=== PATIENT | female | born 1960 | race Caucasian/White ===

== ENCOUNTER → 2017-11-20 10:04 | Outpatient (CLI) | payer OTHER, SELFPAY ==
--- NOTE | 2017-11-20 10:14 | XR_ITS ---
XR chest 2V HISTORY: ITS.REASON: BRONCHITIS ORDERING PHYSICIAN: Maryanne Kam PATIENT AGE: 57 years COMPARISON: None FINDINGS: The cardiomediastinal silhouette and pulmonary vascularity are within normal limits. There is hyperinflation with attenuation of the peripheral pulmonary vessels which may be seen with small airway disease such as COPD or asthma. The lungs are clear without infiltrates, suspicious nodules, or pleural effusions. No acute bony abnormalities. IMPRESSION: Hyperinflation suggesting small airway disease such as COPD or asthma or bronchitis
== END ==
PROVIDERS: PCP Family Medicine; Visit Provider Nurse Practitioner Family
DX: J40 Bronchitis, not specified as acute or chronic (principal)
CPT/HCPCS: 71046

== ENCOUNTER → 2017-12-15 11:12 | Outpatient (CLI) | payer BC, SELFPAY | PROVIDERS: PCP Family Medicine; Visit Provider Family Medicine | DX: J44.1 Chronic obstructive pulmonary disease with (acute) exacerbation (principal) | CPT/HCPCS: 94060; 94727; 94729 ==

== ENCOUNTER 2020-04-22 12:37 | Emergency (ER) | payer BC, SELFPAY ==
[2020-04-22 12:40] VITALS: BP 122/76; PULSE 83; RESP 19; TEMP 36.8; O2SAT 99; BMI 26.4
--- NOTE | 2020-04-22 13:11 | HMH.EDUTC ---
[facility] [place] Clinical Impression: Exposure to COVID-19 virus Disposition: Home, Self-Care Condition on Discharge: Good Instructions: DI for COVID-19 (Suspected or Confirmed ), Coronavirus Disease 2019, Preventing the Spread of Coronavirus Discharge Instructions Additional Instructions: *Monitor Temp, Over the counter Motrin or Tylenol as directed/as needed Tylenol every 4 hours and Motrin every 6 hours (as long as your family doctor has told you that you can take it) for fever or pain. and straight to ER if unable to lower temp less than 101.0 after medication given Follow up IMMEDIATELY for new or worsening symptoms or no Noticeable improvement over the next 48-72 hours. 911 for difficulty breathing or swallowing You were tested for today for COVID19 your test result should be back in the next 24-48 hours, you may call to the [facility] to see if your test results are back in the next 48 hours [phone] [facility] hours are 9am-9pm You was given a handout with instructions for Self Quarantine and Self isolation for while you wait on test results and what to do if they are positive If you are positive the Health Dept will be contacting you also Referrals: Alicia Alejandre [Primary Care Provider] - As needed Forms: Work/School Release Time of Disposition: 13:17 Medical Decision Making - Simeon Inquiry Pt receiving controlled substance: No Simeon was queried for this patient: No Vital Signs: 04/22/20 12:40 Temperature 98.2 F Temperature Source Oral Pulse Rate [Right Brachial] 83 Respiratory Rate 19 Blood Pressure [Right Arm] 122/76 Blood Pressure Mean [Right Arm] 91 Blood Pressure Source [Right Arm] Automatic Cuff Blood Pressure Position [Right Arm] Sitting 02 Sat by Pulse Oximetry 99 Oxygen Delivery Method Room Air Orders (Tests/Meds): ORDERS Category Date Time Status Covid-19 Nasal PCR Sendout [facility] Stat Lab 04/22/20 12:47 Ordered [facility] [place] - General Stated complaint: covid exposure Time Seen by Provider: 04/22/20 13:11 Mode of Arrival: Ambulatory Source of Information: Patient Limitations: No Limitations Description of Symptoms (Recalled from Triage Doc. by RN): PATIENT REQUESTING COVID TEST D/T EXPOSURE; DENIES SYMPTOMS HEENT Symptoms (Recalled from RN notes): No Resp Symptoms (Recalled from RN notes): No Skin Symptoms (Recalled from RN notes): No MS Symptoms (Recalled from RN notes): No Functional Status (Recalled from RN notes): WNL - History of Present Illness Provider Complaint: Patient state that she was recently around someone that in close contact with someone that has since tested positive for COVID States that she is not having any symptoms but wanted to get tested due to close contact - Related Data Home Medications Medication Instructions Recorded Confirmed Oxybutynin Chloride 5 mg PO BID 06/08/19 06/08/19 Allergies Allergy/AdvReac Type Severity Reaction Status Date / Time promethazine [From Phenergan] Allergy Verified 09/03/18 15:19 - Worker's Comp Is this a Worker's Comp case?: No [place] History - Hepatitis A Screen Drug use history?: No High risk sexual behaviors?: No History of sexually transmitted infection?: No Currently employed?: No Childcare worker?: No Do you have indoor plumbing?: Yes Do you have electricity?: Yes Attestation statement:: This patient has been screened for Hepatitis A risk factors. I have reviewed the patient's past medical history: Yes Medical History: Reports:: Chronic Obstructive Pulmonary Disease (COPD) Other Medical History: Reports: Arthritis Other Surgeries: Yes: Other Amputation: No Fractures: No Comment: cyst removed from hand - Social History Smoking Status: Current every day smoker Tobacco Type: cigarettes # Packs/Day (cigarettes): 1 #Yrs smoked (if former smoker): 40 Alcohol Intake: never Alcohol Intake Frequency:: holidays/special occasions only Substance Use Type: denies use Occupational Status: other [employer]
[2020-04-22 13:18] VITALS: BP 122/76; PULSE 83; RESP 19; TEMP 36.8; O2SAT 99
[2020-04-23 12:09] LABS: Covid-19 Nasal PCR Sendout P&C Negative
== END 2020-04-22 13:24 | disposition home or self-care (01) ==
PROVIDERS: Emergency Provider Nurse Practitioner; PCP Family Medicine
DX: Z20.828 Contact with and (suspected) exposure to other viral communicable diseases (principal); J44.9 Chronic obstructive pulmonary disease, unspecified; F17.210 Nicotine dependence, cigarettes, uncomplicated; Z79.899 Other long term (current) drug therapy
CPT/HCPCS: 99201; U0004

== ENCOUNTER 2020-08-25 13:22 | Emergency (ER) | payer BC, SELFPAY ==
[2020-08-25 13:35] VITALS: BP 113/86; PULSE 86; RESP 19; TEMP 36.8; O2SAT 100; BMI 25.4
--- NOTE | 2020-08-25 13:45 | HMH.EDUTC ---
[facility] [place] Impression: Ingrown nail of great toe of right foot Low back pain Qualifiers: Chronicity: chronic Back pain laterality: right Sciatica presence: with sciatica Sciatica laterality: sciatica of right side Qualified Code(s): M54.41 - Lumbago with sciatica, right side Disposition: Home, Self-Care Condition on Discharge: Good Instructions: Ingrown Toenail, DI for Low Back Pain Additional Instructions: Go home and rest. No heavy lifting. No twisting. Take the oral medications as directed. Don't start the oral steroids (medrol dose pack) until tomorrow, since you had the shots in here today. Follow up with your regular doctor. Follow up with Dr. Hilton (podiatry) regarding your ingrown toe nail. GO TO THE ER FOR ANY WORSENING SYMPTOMS OR CONCERN, ESPECIALLY BOWEL OR BLADDER ISSUES, SADDLE AREA NUMBNESS, FEVER, ETC Prescriptions: cephALEXin [cephALEXin 500mg capsule] 500 mg PO Q6H 10 Days #40 cap Transmission Status: Received by [id number] methylPREDNISolone [Medrol] 4 mg PO DIRECTED 6 Days #21 tab.ds.pk Transmission Status: Received by [id number] Referrals: Alicia Alejandre [Primary Care Provider] - Risa Hilton DPM [Staff Physician] - Forms: Work/School Release Time of Disposition: 14:12 Medical Decision Making - Medical Records Medical records reviewed: No: I reviewed the patient's medical records. - Simeon Inquiry Pt receiving controlled substance: No Vital Signs: 08/25/20 13:35 08/25/20 14:11 Temperature 98.2 F 98.2 F Temperature Source Oral Pulse Rate 86 Pulse Rate [Right Brachial] 86 Respiratory Rate 19 19 Blood Pressure 113/86 Blood Pressure [Right Arm] 113/86 Blood Pressure Mean [Right Arm] 95 Blood Pressure Source [Right Arm] Automatic Cuff Blood Pressure Position [Right Arm] Sitting 02 Sat by Pulse Oximetry 100 Oxygen Delivery Method Room Air Orders (Tests/Meds): ED MEDICATIONS Discontinued Medications Generic Name Dose Route Start Last Admin Trade Name Freq PRN Reason Stop Dose Admin Ketorolac Tromethamine 60 mg 08/25/20 13:53 08/25/20 14:00 Ketorolac 60mg/2ml Vial IM 08/25/20 13:54 60 mg ONCE ONE Administration Methylprednisolone Sodium Succinate 125 mg 08/25/20 13:53 08/25/20 14:00 Methylprednisolone Sod Succ 125mg Vial IM 08/25/20 13:54 125 mg ONCE ONE Administration [facility] [place] - General Stated complaint: lt side pain, rt foot pain Time Seen by Provider: 08/25/20 13:49 - History of Present Illness Provider Complaint: She states that she has been having right great toe pain for the past 1 week. She has had an ingrown nail and it felt like this before. She has also been having low back pain that radiates down her right leg. - Related Data Home Medications Medication Instructions Recorded Confirmed Oxybutynin Chloride 5 mg PO BID 06/08/19 08/25/20 Previous Rx's Medication Instructions Recorded cephALEXin [cephALEXin 500mg 500 mg PO Q6H 10 Days #40 cap 08/25/20 capsule] methylPREDNISolone [Medrol] 4 mg PO DIRECTED 6 Days #21 08/25/20 tab.ds.pk Allergies Allergy/AdvReac Type Severity Reaction Status Date / Time promethazine [From Phenergan] Allergy Verified 09/03/18 15:19 [facility] History - Hepatitis A Screen Attestation statement:: This patient has been screened for Hepatitis A risk factors. I have reviewed the patient's past medical history: Yes Medical History: Reports:: Chronic Obstructive Pulmonary Disease (COPD) Other Medical History: Reports: Arthritis Other Surgeries: Yes: Other Amputation: No Fractures: No Comment: cyst removed from hand - Social History Smoking Status: Current every day smoker Tobacco Type: cigarettes # Packs/Day (cigarettes): 1 #Yrs smoked (if former smoker): 40 Alcohol Intake: never Alcohol Intake Frequency:: holidays/special occasions only Substance Use Type: denies use Occupational Status: o
[2020-08-25 14:11] VITALS: BP 113/86; PULSE 86; RESP 19; TEMP 36.8; O2SAT 100
== END 2020-08-25 14:20 | disposition home or self-care (01) ==
PROVIDERS: Emergency Provider Nurse Practitioner Family; PCP Family Medicine
DX: L60.0 Ingrowing nail (principal); M54.41 Lumbago with sciatica, right side; J44.9 Chronic obstructive pulmonary disease, unspecified; Z79.899 Other long term (current) drug therapy
CPT/HCPCS: 96372; 99202; G0463

== ENCOUNTER 2021-10-11 16:53 | Emergency (ER) | payer BC, SELFPAY ==
[2021-10-11 18:30] VITALS: BP 136/88; PULSE 84; RESP 19; TEMP 36.8; O2SAT 98; BMI 23.7
--- NOTE | 2021-10-11 19:09 | HMH.EDUTC ---
[facility] [place] Clinical Impression: Bronchitis Sinusitis Qualifiers: Sinusitis location: unspecified location Chronicity: unspecified Qualified Code(s): J32.9 - Chronic sinusitis, unspecified Disposition: Home, Self-Care Condition on Discharge: Good Instructions: Sinusitis, Acute Bronchitis, DI for Sinusitis, DI for Acute Bronchitis Additional Instructions: ? Start antibiotic today. Be sure to complete entire prescription even if feeling better ? Monitor temp. Tylenol every 4 hours as needed and / or ibuprofen every 6 hours as needed ( As long as your primary care physician has told you that it ok to take both. For fever/aches/pains ER if no less than 101 despite Tylenol or Motrin ? Humidifier/vaporizer or hot steamy shower *Tessalon Perles will not cause drowsiness but use at bedtime to help stop cough so that you may get some rest. *Start steroid tomorrow. Helps with inflammation therefore, cough and wheezing. Follow directions on the package. Reviewed side effects. Patient reports taking them before. Follow up IMMEDIATELY for new or worsening of symptoms OR no noticeable improvement over the next 48-72 hours. 911 immediately for any life threatening symptoms such as chest pain or difficulty breathing Prescriptions: Benzonatate [Benzonatate 100mg cap] 100 mg PO Q8HP PRN #15 cap PRN Reason: Cough Transmission Status: Received by [id number] predniSONE [Prednisone 20mg Tab] 20 mg PO BID #10 tab Transmission Status: Received by [id number] Azithromycin [Z-Zoran 250mg Tab] 250 mg PO DIRECTED #6 tab Transmission Status: Received by [id number] Referrals: Alicia Alejandre [Primary Care Provider] - As needed Time of Disposition: 19:20 Medical Decision Making - Simeon Inquiry Pt receiving controlled substance: No [place] was queried for this patient: No Vital Signs: 10/11/21 18:30 10/11/21 19:33 Temperature 98.2 F 98.2 F Temperature Source Oral Pulse Rate 84 Pulse Rate [Right Brachial] 84 Respiratory Rate 19 19 Blood Pressure 136/88 Blood Pressure [Right Arm] 136/88 Blood Pressure Mean [Right Arm] 104 Blood Pressure Source [Right Arm] Automatic Cuff Blood Pressure Position [Right Arm] Sitting 02 Sat by Pulse Oximetry 98 Oxygen Delivery Method Room Air Orders (Tests/Meds): ED MEDICATIONS Discontinued Medications Generic Name Dose Route Start Last Admin Trade Name Yung PRN Reason Stop Dose Admin Ceftriaxone Sodium 1 gm 10/11/21 19:16 10/11/21 19:30 Ceftriaxone 1gm Vial IM 10/11/21 19:17 1 gm ONCE ONE Administration Lidocaine HCl 0 ml 10/11/21 19:16 10/11/21 19:30 Lidocaine 1% 5ml Pf Vial IM 10/11/21 19:17 2 ml ONCE ONE Administration Methylprednisolone Sodium Succinate 125 mg 10/11/21 19:16 10/11/21 19:30 Methylprednisolone Sod Succ 125mg Vial IM 10/11/21 19:17 125 mg ONCE ONE Administration [facility] [place] HPI - General Stated complaint: possible bronchitis Time Seen by Provider: 10/11/21 19:09 Mode of Arrival: Ambulatory Source of Information: Patient Limitations: No Limitations Description of Symptoms (Recalled from Triage Doc. by RN): PATIENT C/O COUGH AND CHEST CONGESTION. REPORTS TESTING POSITIVE FOR COVID LAST MONDAY HEENT Symptoms (Recalled from RN notes): No Resp Symptoms (Recalled from RN notes): Yes Skin Symptoms (Recalled from RN notes): No MS Symptoms (Recalled from RN notes): No Functional Status (Recalled from RN notes): WNL - History of Present Illness Provider Complaint: Patient states that she has a history of COPD and Bronchitis States that she feels like it is coming on States that she has had cough since last Mon that has continued to get worse sinus congestion and pressure along with scratchy throat and cough States that today she came in to get checked out - Related Data Home Medications Medication Instructions Recorded Confirmed Aspirin [Aspirin 81mg chewable 81 mg PO NEGRITO
[2021-10-11 19:33] VITALS: BP 136/88; PULSE 84; RESP 19; TEMP 36.8; O2SAT 98
== END 2021-10-11 19:47 | disposition home or self-care (01) ==
PROVIDERS: Emergency Provider Nurse Practitioner; PCP Family Medicine
DX: J32.9 Chronic sinusitis, unspecified (principal); M19.90 Unspecified osteoarthritis, unspecified site; J44.9 Chronic obstructive pulmonary disease, unspecified; F17.210 Nicotine dependence, cigarettes, uncomplicated; Z20.822 Contact with and (suspected) exposure to COVID-19; Z82.49 Family history of ischemic heart disease and other diseases of the circulatory system; Z81.8 Family history of other mental and behavioral disorders; Z80.9 Family history of malignant neoplasm, unspecified; Z83.49 Family history of other endocrine, nutritional and metabolic diseases; Z79.52 Long term (current) use of systemic steroids
CPT/HCPCS: 96372; 99213; G0463; J0696

== ENCOUNTER 2023-02-07 14:44 | Emergency (ER) | payer BC, SELFPAY ==
[2023-02-07 14:45] VITALS: BP 123/71; PULSE 96; RESP 18; TEMP 36.9; O2SAT 97; BMI 28.3
--- NOTE | 2023-02-07 15:05 | EXP.UTC ---
Discharge Plan Disposition Patient Disposition: Home, Self-Care Condition: Good Prescriptions Prescriptions: New prednisone 10 mg tablet 10 mg PO DIRECTED 9 Days Qty: 21 0RF Rx Instructions: Take 4 tablets daily for 3 days, then take 2 tablets daily for 3 days, then take 1 tablet daily for 3 days, then stop. benzonatate [benzonatate] 100 mg capsule 100 mg PO TIDP PRN (Reason: Cough) Qty: 30 0RF amoxicillin-pot clavulanate 875-125 mg Tablet 1 tab PO Q12H Qty: 20 0RF No Action aspirin 81 MG tablet,chewable 81 mg PO DAILY Referrals Follow up/Referrals: Provider,Referral, MD [Primary Care Provider] - See instructions Activity Restrictions/Add. Instructions Additional Instructions/Restrictions: Drink plenty of fluids. Take tylenol or ibuprofen for pain or fever. Take the medications as directed. Follow up with your regular doctor. GO TO THE ER FOR ANY WORSENING SYMPTOMS Don't start the oral steroids until tomorrow, since you had the shot here today. Clinical Impressions Clinical Impression: COPD exacerbation Instructions Patient Instructions: Chronic Obstructive Pulmonary Disease, DI for Chronic Obstructive Pulmonary Disease, Ceftriaxone Injection, Methylprednisolone Injection Discharge ED Provider: Venancio Nuñez [facility] [place] HPI General Stated complaint: chest congestion, [place] Mode of Arrival: Ambulatory Source of Information: Patient Limitations: No Limitations Time Seen by Provider: 02/07/23 15:04 Description of Symptoms (Recalled from Triage Doc. by RN): chest congestion, SOB, and cough HEENT Symptoms (Recalled from RN notes): Yes Resp Symptoms (Recalled from RN notes): No Skin Symptoms (Recalled from RN notes): No MS Symptoms (Recalled from RN notes): No Functional Status (Recalled from RN notes): n/a History of Present Illness Provider Complaint: She states that for the past 1 week she has had a worsening productive cough, chest congestion and sinus congestion. Related Data Home Medications Medication Instructions Recorded Confirmed aspirin 81 mg chewable tablet 81 mg PO DAILY BLOOD CLOTS 10/11/21 02/07/23 Previous Rx's Medication Instructions Recorded amoxicillin 875 mg-potassium 1 tab PO Q12H #20 tabs 02/07/23 clavulanate 125 mg tablet benzonatate 100 mg capsule 100 mg PO TIDP PRN Cough #30 caps 02/07/23 prednisone 10 mg tablet 10 mg PO DIRECTED 9 days #21 02/07/23 tabs Allergies Allergy/AdvReac Type Severity Reaction Status Date / Time promethazine [From Phenergan] Allergy Verified 02/07/23 15:00 Worker's Comp Is this a Worker's Comp case?: No [facility] Disclaimer: The information contained in this section may have been updated after the patient was seen, as this information can be updated by other users. Social History Smoking Status: Current every day smoker tobacco type: cigarettes packs per day: 1 alcohol intake: current substance use type: denies use current occupational status: other Travel in the last 8 weeks: None household members: family housing: house ROS Obtained: Yes All systems reviewed & no additional complaints except as documented Constitutional Constitutional: Reports poor appetite Eyes Eyes: Reports system reviewed and no additional complaints, except as documented ENT Ears, Nose, Mouth, and Throat: Reports as per HPI Cardiovascular Cardiovascular: Reports system reviewed and no additional complaints, except as documented and Denies chest pain Respiratory Respiratory: Denies shortness of breath, Reports chest congestion, Reports cough, Denies stridor and Denies wheezing Gastrointestinal Gastrointestingal: Reports system reviewed and no additional complaints, except as documented; Denies abdominal pain, diarrhea or vomiting Musculoskeletal Musculoskeletal: Reports system reviewed and no additional complaints, except as documented and Denies ar
[2023-02-07 15:47] VITALS: BP 123/71; PULSE 96; RESP 18; TEMP 36.9; O2SAT 97
== END 2023-02-07 15:47 | disposition home or self-care (01) ==
PROVIDERS: Emergency Provider Nurse Practitioner Family
DX: J44.1 Chronic obstructive pulmonary disease with (acute) exacerbation; F17.210 Nicotine dependence, cigarettes, uncomplicated
CPT/HCPCS: 87635; 96372; 99212; 99214; G0463; J0696

== ENCOUNTER 2024-05-29 07:45 | Outpatient (CLI) | payer OTHER, SELFPAY ==
--- NOTE | 2024-05-29 07:58 | XR_ITS ---
FINAL REPORT CLINICAL HISTORY: left hip pain FINDINGS: LEFT HIP 2 views of the left hip are obtained. There is no acute fracture or dislocation. Visualized joint spaces are normally aligned. There is a left iliac vein stent. There is no acute soft tissue abnormality. IMPRESSION: No acute bony abnormality. Reviewed, Interpreted and Dictated by Wayne Manriquez MD Transcribed by Selam Day Authenticated and [facility]
--- NOTE | 2024-05-29 07:58 | XR_ITS ---
FINAL REPORT CLINICAL HISTORY: right hip pain FINDINGS: RIGHT HIP Two views of the right hip demonstrate no acute fracture or dislocation. The joint spaces appear normal. The visualized bony structures are well aligned. No soft tissue abnormality is seen. IMPRESSION: No acute bony abnormality. Reviewed, Interpreted and Dictated by Wayne Manriquez MD Transcribed by Selam Day Authenticated and [facility]
[2024-05-29 08:26] LABS: Basophils # 0.1 K/mm3 (0-0.2); Eosinophils # 0.2 K/mm3 (0.0-0.4); Eosinophils % 3.4 % (0.1-12.0); Hematocrit 47.6 % (37.0-47.0); Hemoglobin 15.2 g/dL (12.2-16.2); Lymphocytes # 1.9 K/mm3 (0.7-4.5); Lymphocytes % 26.5 % (10-50); Mean Corpuscular HGB Conc 31.9 g/dL (31.8-35.4); Mean Corpuscular Volume 94.1 fl (81-99); Mean Platelet Volume 11.5 fl (7.4-10.4); Monocytes # 0.6 K/mm3 (0.1-1.0); Neutrophils # 4.3 K/mm3 (1.8-7.8); Neutrophils % 59.8 % (37.0-80.0); Platelet Count 208 K/mm3 (142-424); Red Blood Count 5.06 M/mm3 (4.20-5.40); Red Cell Distribution Width 12.4 % (11.5-17.5); White Blood Count 7.1 K/mm3 (4.8-10.8)
[2024-05-29 08:43] LABS: Hemoglobin A1C 5.2 % (4.0-6.0)
[2024-05-29 08:48] LABS: Alanine Aminotransferase 17 U/L (12-78); Albumin Level 4.6 g/dl (3.5-5.0); Albumin/Globulin Ratio 2.3 (1.1-1.8); Alkaline Phosphatase 104 U/L (38-126); Anion Gap 10.4 mEq/L (5-15); Aspartate Amino Transferase 25 U/L (14-36); Bilirubin,Total 0.3 mg/dl (0.2-1.3); Blood Urea Nitrogen 15 mg/dl (7-17); Carbon Dioxide 32 mmol/L (22.0-30.0); Chloride 105 mmol/L (98-107); Chol/HDL Ratio 3.7 (1-3.5); Cholesterol 217 mg/dl (140-200); Estimated Glomerular Filt Rate 73 ml/min (>60); GFR (African American) 88 ML/MIN (>60); Glucose 85 mg/dl (74-100); HDL Cholesterol 59 mg/dl (40-60); Magnesium 1.8 mg/dl (1.6-2.3); Potassium 4.4 mmoL/L (3.5-5.1); Sodium 143 mmol/L (136-145); Total Protein,Serum 6.6 g/dl (6.3-8.2); Triglycerides 85 mg/dl (30-150); Uric Acid 4.5 mg/dl (2.5-6.2); VLDL Cholesterol 17 mg/dL (0-40)
[2024-05-29 08:58] LABS: Direct LDL Cholesterol 105.79 mg/dL (100-129)
[2024-05-29 09:02] LABS: 25-OH Vitamin D, Total 21.3 ng/mL (30-100)
[2024-05-29 09:36] LABS: Vitamin B12 662 pg/mL (239-931)
[2024-05-29 09:45] LABS: Erythrocyte Sedimentation Rate 5 mm/hr (0-30)
[2024-05-30 08:22] LABS: Insulin Level Total 2.1 uIU/mL (2.6-24.9); RA Latex Turbid. 12.1 IU/mL (<14.0)
[2024-05-30 18:54] LABS: Antinuclear Antibodies, IFA Negative (.)
== END 2024-05-29 23:59 | disposition home or self-care (01) ==
LOC: LAB 07:47
PROVIDERS: PCP Nurse Practitioner Family; Visit Provider Nurse Practitioner Family
DX: R20.0 Anesthesia of skin (principal); R20.2 Paresthesia of skin; R53.83 Other fatigue; Z13.220 Encounter for screening for lipoid disorders; E16.2 Hypoglycemia, unspecified; M25.551 Pain in right hip; M25.552 Pain in left hip; I73.9 Peripheral vascular disease, unspecified; J44.9 Chronic obstructive pulmonary disease, unspecified
CPT/HCPCS: 36415; 73502; 80053; 80061; 82306; 82533; 82607; 82728; 83036; 83525; 83735; 84550; 85025; 85651; 86038; 86431

== ENCOUNTER 2024-06-11 16:29 | Outpatient (CLI) | payer OTHER, SELFPAY ==
--- NOTE | 2024-06-11 16:30 | MM_ITS ---
PROCEDURE INFORMATION: Exam: Bilateral Screening 3D Mammography Exam date and time: 06/11/2024 4:33 PM Age: 63 years old Clinical indication: Screening exam. TECHNIQUE: Imaging protocol: Bilateral Screening tomosynthesis and 2D mammography including computer-aided detection (CAD) when performed. COMPARISON: [facility] MAMMO W/CAD BILAT 03/05/2019 10:20 AM FINDINGS: MAMMOGRAPHY: Breast composition: The breasts are heterogeneously dense, which may obscure small masses. Mass: No suspicious masses. Architectural distortion: None. Calcifications: No suspicious calcifications. Asymmetric density: None. Skin thickening: None. Axillary adenopathy: None. IMPRESSION: No mammographic evidence of malignancy. Annual screening is recommended unless otherwise clinically indicated. ASSESSMENT: BI-RADS Category 1: Negative.
== END 2024-06-11 23:59 | disposition home or self-care (01) ==
LOC: RAD 16:30
PROVIDERS: PCP Nurse Practitioner Family; Visit Provider Nurse Practitioner Family
DX: Z12.31 Encounter for screening mammogram for malignant neoplasm of breast (principal)
CPT/HCPCS: 77063; 77067

== ENCOUNTER 2024-08-05 08:21 | Day surgery (SDC) | payer OTHER, SELFPAY ==
[2024-08-02 09:41] VITALS: BMI 28.3
[2024-08-05 08:37] VITALS: BP 124/89; PULSE 102; RESP 18; O2SAT 98
[2024-08-05] MEDS: LACTATED RINGERS 1000ML 1,000 ML 50 ML IV (08:55)
--- NOTE | 2024-08-05 09:54 | P.HP_ITS ---
History of Present Illness *Admission Date: 08/05/24 *Reason for visit:: Personal history of colon polyps (unspecified) *History of present illness: Mrs. Delgado is a 64-year-old female who is here for follow-up surveillance colonoscopy secondary to a personal history of colon polyps (unspecified). The examination is deemed medically necessary for surveillance colonoscopy. The patient has been seen, interviewed and examined prior to the procedure by both myself and the anesthesia provider. [facility] Disclaimer: The information contained in this section may have been updated after the patient was seen, as this information can be updated by other users. Medical History (Updated 08/05/24 @ 10:12 by Pedro Luis Pastrana II, MD) PVD (peripheral vascular disease) DVT (deep venous thrombosis) Dry eye syndrome Sleep apnea Lumbar stenosis Bulging disc Osteoarthritis COPD (chronic obstructive pulmonary disease) DDD (degenerative disc disease) Surgical History History of removal of cyst Family History Mother Cancer Dementia Age related osteoporosis Father Alzheimer's dementia Parkinson disease Sister Cancer Social History (Updated 08/05/24 @ 08:46 by Venessa Hill RN) Smoking Status: Current every day smoker tobacco type: cigarettes packs per day: 2 alcohol intake: current alcohol intake frequency: holidays/special occasions only substance use type: marijuana current occupational status: employed Travel in the last 8 weeks: None household members: family housing: house caffeine: Yes Have you lived/traveled outside [place] in past 30 days?: No Contact w/someone who lives/traveled outside US past 30 days?: No Exposure to someone with infectious disease in past 14 days?: No Do you have a fever (greater than 100.4 F or 38 C)?: No Have you tested positive for COVID-19: No Exposed to someone with COVID-19 in past 14 days?: No Do you have a sore throat?: No Do you have a cough?: No Do you have any weakness?: No Are you experiencing any nausea/vomitting?: No Do you have any diarrhea?: No Are you experiencing any unusual bleeding?: No Do you have any muscle aches/pain?: No Do you have any abdominal pain?: No Are you experiencing loss of taste or smell?: No Other Medical History Have you received the Flu Vaccine for this season: No Have you received the Pneumonia Vaccine: Yes Review of Systems Review of Systems Review of systems (narrative): Negative *Cardiovascular Comments: Negative *Gastrointestinal Comments: Negative *Genitourinary Comments: Negative *Musculoskeletal Comments: Negative *Neurologic Comments: Negative Meds Home Medications and Allergies Home Medications ?Medication ?Instructions ?Recorded ?Confirmed ?Type sodium,potassium,mag sulfates 17.5 See Rx Instructions PO .COMPLEX 07/22/24 Rx gram-3.13 gram-1.6 gram oral soln #354 mL (Suprep Bowel Prep Kit) New Prescriptions to Start Prescriptions: Allergies Allergy/AdvReac Type Severity Reaction Status Date / Time promethazine (From Phenergan) Allergy Unknown Verified 08/05/24 08:40 allergy reaction Exam Data for Last 24 hours Vital signs and Labs for Last 24 Hours: Pulse Resp BP Pulse Ox O2 Del Method 102 H 18 124/89 98 Room Air 08/05/24 08:37 08/05/24 08:37 08/05/24 08:37 08/05/24 08:37 08/05/24 08:37 I & O for Last 24 hours: Intake & Output 08/02/24 08/03/24 08/04/24 08/05/24 23:59 23:59 23:59 23:59 Weight 155 lb *Routine HEENT Exam Head: Present normocephalic Eye: Present EOMI and PERRL ENT: Present mucous membranes moist *Routine Neck Exam Neck: Present supple *Routine Respiratory Exam Respiratory: Present CTA bilaterally *Routine Cardiovascular Exam Cardiovascular: Present RRR *Routine Abdominal Exam Abdominal: Present soft and normoactive bowel sounds; Absent tenderness *Routine Rectal Exam Rectal:: deferred *Routine Genitalia Exam Genitalia:: deferred *Routine Extremities Exam Extremities: Absent cyanosis, clubbing or edema *Routine Skin Exam Skin: Present warm; Absent rash *Routine Neurological Exam Neurological: Present alert and oriented X3 Assessment and Plan *Assessment and plan (1) Personal history of colon polyps, unspecified: Status: Acute Category: Medical Code(s): Z86.0100 - Personal history of colon polyps, unspecified Plan A/P: 1. Personal history of colon polyps (unspecified) with last colonoscopy 8 years ago is the preprocedural diagnosis. The patient will be anesthetized/sedated using MAC sedation. The patient has been seen and examined. Cardiac and lung assessment prior to the examination is stable. Proceed with planned surveillance colonoscopy.
[2024-08-05 10:03] VITALS: O2SAT 100
--- NOTE | 2024-08-05 10:04 | P.PNANES_ITS ---
[facility] Disclaimer: The information contained in this section may have been updated after the patient was seen, as this information can be updated by other users. Medical History PVD (peripheral vascular disease) DVT (deep venous thrombosis) Dry eye syndrome Sleep apnea Lumbar stenosis Bulging disc Osteoarthritis COPD (chronic obstructive pulmonary disease) DDD (degenerative disc disease) Surgical History History of removal of cyst Family History Mother Cancer Dementia Age related osteoporosis Father Alzheimer's dementia Parkinson disease Sister Cancer Social History Smoking Status: Current every day smoker tobacco type: cigarettes packs per day: 2 alcohol intake: current alcohol intake frequency: holidays/special occasions only substance use type: marijuana current occupational status: employed Travel in the last 8 weeks: None household members: family housing: house caffeine: Yes Have you lived/traveled outside US in past 30 days?: No Contact w/someone who lives/traveled outside US past 30 days?: No Exposure to someone with infectious disease in past 14 days?: No Do you have a fever (greater than 100.4 F or 38 C)?: No Have you tested positive for COVID-19: No Exposed to someone with COVID-19 in past 14 days?: No Do you have a sore throat?: No Do you have a cough?: No Do you have any weakness?: No Are you experiencing any nausea/vomitting?: No Do you have any diarrhea?: No Are you experiencing any unusual bleeding?: No Do you have any muscle aches/pain?: No Do you have any abdominal pain?: No Are you experiencing loss of taste or smell?: No [facility] Anesthesia Checklist Patient Identification Patient Identification: Arm Band and Verbal (Name & ) Structural Data Admitted From: Home Planned Operative Procedure/s: colonscopy Consent for Planned Operative Procedure(s) Verified: Yes Verified Documents: Surgical Consent and History and Physical NPO Status Verified Time NPO: 00:00 Additional verifications Anesthesia Reactions: No Airway Assessment Mallampati Score:: Class II Neurological Assessment Level of Consciousness: Awake, Alert and Appropriate Anesthesia Plan Anesthesia Risk discussed: Yes Anesthesia Plan: Verified ASA Class: III Anesthesia Type: MAC
--- NOTE | 2024-08-05 10:13 | P.PCN_ITS ---
[facility] Procedure Note Date: 08/05/24 Time: 10:36 Procedure Note:: Colonoscopy Procedure Report: Colonoscopy with cold snare polypectomy Endoscopist: Pedro Luis Pastrana II, MD Referring physician: KODI Lagos Date of Procedure: August 05, 2024 Equipment: Olympus 190 variable stiffness pediatric colonoscope Sedation: MAC sedation Indication: Mrs. Delgado is a 64-year-old female who is here for follow-up surveillance colonoscopy secondary to a personal history of colon polyps (unspecified). Her last colonoscopy was 8 years ago in [place] and she had 6 or 7 polyps removed. She does report moderate bloating and some gassiness and feels as if gas moves from her abdomen into her hips and back. She reports no rectal bleeding, weight loss or family history of colon cancer. Her father had diverticulitis. The patient has had some looser bowel movements. Procedure: Prior to the procedure, a history and physical exam was performed, and patient's medications and allergies were reviewed. The risks, benefits and alternatives of the sedation and procedure were discussed with the patient. All questions were answered and informed consent was obtained. The patient was brought to the procedure room. Patient identification and proposed procedure were verified by the physician and the nurse. The patient was placed in a left lateral decubitus position and the scope was passed under direct vision. Throughout the procedure, the patient's blood pressure, pulse, and oxygen saturations were monitored continuously. The colonoscopy was accomplished without difficulty. The patient tolerated the procedure well. Findings: On digital rectal examination there was normal rectal tone. There were no external hemorrhoids. The colonoscope was introduced through the anal canal to the rectum and advanced to the cecum. The ileocecal valve and appendiceal orifice were identified. The scope was advanced a short distance into the ileum which appeared grossly normal. The scope was then withdrawn into the colon. There were 7 polyps (cecum x 2 (4 and 12 mm (with mucus cap), ascending x 1 (9 to 10 mm (with mucus cap), transverse x 1 (4 mm), descending x 1 (5 mm) and rectal x 2 (4 and 8 mm)). All of these were removed via cold snare polypectomy. The remaining cecum, ascending and transverse colon and mucosa were grossly normal. There were scattered diverticuli throughout the descending and sigmoid colon (LEFT colon). The rectum itself was normal. Upon retroflexion within the rectum there were small grade 1 internal hemorrhoids. The preparation was excellent throughout with Magna Preparation Score of 9. The cecal time was 12 minutes. Impression: 1. Colonic polyps x 7 2. Left-sided diverticulosis 3. Grade 1 internal hemorrhoids Plan: I will follow-up the polyp histology and recommend repeat surveillance colonoscopy again in 3 years if the polyps are adenomatous. I would encourage bulking fiber supplementation on a maintenance basis.
[2024-08-05 10:41] VITALS: BP 105/61; PULSE 88; RESP 18; O2SAT 97
[2024-08-05 10:51] VITALS: BP 115/80; PULSE 86; RESP 17; O2SAT 96
[2024-08-05 11:01] VITALS: BP 117/85; PULSE 84; RESP 18; O2SAT 97
[2024-08-05 11:11] VITALS: BP 125/77; PULSE 81; RESP 18; O2SAT 98
== END 2024-08-05 11:27 | disposition home or self-care (01) ==
PROVIDERS: PCP Nurse Practitioner Family; Visit Provider Internal Medicine Gastroenterology
PROC: 0DJD8ZZ Inspection of Lower Intestinal Tract, Via Natural or Artificial Opening Endoscopic (ICD-10-PCS; CPT 45378; principal; 2024-08-05 10:00)
DX: Z12.11 Encounter for screening for malignant neoplasm of colon (principal); K63.5 Polyp of colon; K57.30 Diverticulosis of large intestine without perforation or abscess without bleeding; K64.0 First degree hemorrhoids; Z86.0100 Personal history of colon polyps, unspecified; R14.0 Abdominal distension (gaseous)
CPT/HCPCS: 45385; J2003; J2704; J7120

== ENCOUNTER 2024-09-09 13:47 | Outpatient (CLI) | payer OTHER, SELFPAY ==
--- NOTE | 2024-09-09 13:45 | XR_ITS ---
FINAL REPORT TECHNIQUE: Bone densitometry calculations of the lumbar spine and bilateral hips were obtained. CLINICAL HISTORY: screening for osteoporosis COMPARISON: None FINDINGS: Using L1-4, the bone mineral density of the spine is 0.917 g/cm2, corresponding to T-score of -1.2. Using the left hip, the bone mineral density of the femoral neck is 0.515 g/cm2, corresponding to a T-score of -3.5. Using the right hip, the bone mineral density of the femoral neck is 0.504 g/cm?, corresponding to a T-score of -3.1. NOTE: T-score: Standard deviation compared with peak bone mass of young adult mean. *Following the recommendations of the International Society of Bone densitometry, classification of hip BMD is based on the lower of two T-scores; total hip or femoral neck. IMPRESSION: Diminished bone mineral density of the bilateral hips consistent with osteoporosis. Diminished bone mineral density of the lumbar spine consistent with osteopenia. Reviewed, Interpreted and Dictated by Wayne Manriquez MD Transcribed by Julianna Fang Authenticated and [facility]
== END 2024-09-09 23:59 | disposition home or self-care (01) ==
LOC: RAD 13:47
PROVIDERS: PCP Nurse Practitioner Family; Visit Provider Nurse Practitioner Family
DX: M81.0 Age-related osteoporosis without current pathological fracture (principal)
CPT/HCPCS: 77080

== ENCOUNTER 2024-09-10 13:47 | Outpatient (RCR) | payer OTHER, SELFPAY ==
--- NOTE | 2024-09-10 16:43 | HMH.PTOPEV ---
PT Outpatient Evaluation Rehab PT Outpatient Evaluation Start: 09/10/24 14:01 Freq: Status: Active Protocol: Document 09/10/24 14:01 VICKY (Rec: 09/10/24 16:42 VICKY [email or web address]) E-signed By Sendy Badillo, PT Outpatient Therapy Subjective History Subjective History Pt is a 64 y/o female who reports chronic low back and bilateral hip pain since 2008. Pt reports gradual worsening of pain overtime. Pt reports she had bilateral hip xrays in May without significant findings, although reports she was diagnosed with hip arthritis in the past. Pt reports most recent lumbar spine MRI in 2018 with findings of DDD, arthritis, spondylosis and bulging disc per pt. Pt reports current symptoms of low back pain that radiates to the lateral aspect of bilateral hips. Pt describes hip pain as tight like a band around her joints that makes her hips feel locked up, states she is often fearful of falling when walking due to this. Pt denies falls or required use of an AD. Pt also reports L groin pain/tightness following IV ultrasound in 2020. Pt reports intermittent numbness/ tingling of bilateral anterior thighs, denies more distal paresthesia or pain. Pt denies b/b dysfunction. Pt reports overall pain is aggravated by laying on her hips, standing, walking, stair climbing and squatting. 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 Chief Complaint Pain,Stiff,Paresthesia Symptom Type Stabbing,Burning,Numbness, Tingling Symptoms Relieved By Ice Current Functional Limitations Lifting,Housework,Standing, Squatting,Walking,Stairs, Bending/Stooping Symptom Description Constant but Variable Level of pain today (0-10) 7 Pain scale - at its best (0-10) 5 Pain scale - at its worst (0-10) 10 Lumbopelvic Eval Posture Lumbar Spine Posture Standing Position Decreased Lordosis Palapation tenderness bilateral Lumbar/Sacral Palpation Findings Tenderness Lumbar/Sacral Palpation Overall Comment Si joint, piriformis 2/4 TTP Accessory Movement L-spine Vertebrae Accessory Movements Central P/A [place] that Elicit Symptoms S1 bilateral Range of Motion Lumbar Spine Active Flexion Range of 75 Motion (degrees) Lumbar Spine Active Extension Range of 10 Motion (degrees) Left Lumbar Spine Lateral Flexion Active 5 Range of Motion (degrees) Right Lumbar Spine Lateral Flexion 5 Active Range of Motion (degrees) Manual Muscle Test Bilateral Knee Extension Strength Grade 5 Normal Knee Flexion Strength Grade 5 Normal Hip Flexion Strength Grade 5 Normal Hip Abduction Strength Grade 4 Good Hip Adduction Strength Grade 4 Good Hip External Rotation Strength Grade 4 Good Hip Internal Rotation Strength Grade 4 Good Hip Extension Strength Grade 3+ Fair+ Ankle Dorsiflexion Strength Grade 5 Normal DTR Rt Patellar 2+ Lt Patellar 2+ Rt Gastroc/Soleus 2+ Lt Gastroc/Soleus 2+ Altered Sensation Bilateral Comment equal and intact to light touch sensation bilaterally Special Tests Hip Tomi (KIM) Test Positive Left,Positive Right Sciatic Nerve Tension Test Negative Left,Negative Right Unilateral Straight Leg Raise (Lasegue) Negative Left,Negative Right Test Sacroiliac Joint Compression Test Positive Left,Positive Right Sacroiliac Joint Distraction Test Positive Left,Positive Right Hip/Knee Eval ROM left Hip Flexion w/Knee Flexed Active Range 115 of Motion (degrees) Hip External Rotation Active Range of 45 Motion (degrees) Hip Internal Rotation Active Range of 30 Motion (degrees) right Hip Flexion w/Knee Flexed Active Range 115 of Motion (degrees) Hip External Rotation Active Range of 40 Motion (degrees) Hip Internal Rotation Active Range of 40 Motion (degrees) Lower Extremity Functional Index Activities Today, do you or would you have any difficulty at all with: a.Any of your usual work, housework or Quite a bit of difficulty school activities b. Your usual hobbies, recreational or Quite a bit of difficulty sporting activities c. Getting into or out of the bath A little bit of difficulty d. Walking between rooms Moderate difficulty e. Putting on your shoes or socks A little bit of difficulty f. Squatting Extreme difficulty or unable to perform activity g. Lifting an object, like a bag of Moderate difficulty groceries from the floor h. Performing light activities around A little bit of difficulty your home i. Performing heavy activities around Extreme difficulty or unable your home to perform activity j. Getting into or out of a car A little bit of difficulty k. Walking 2 blocks Extreme difficulty or unable to perform activity l. Walking a mile Extreme difficulty or unable to perform activity m. Going up or down 10 stairs (about 1 Extreme difficulty or unable flight of stairs) to perform activity n. Standing for 1 hour Moderate difficulty o. Sitting for 1 hour Moderate difficulty p. Running on even ground Extreme difficulty or unable to perform activity q. Running on uneven ground Extreme difficulty or unable to perform activity r. Making sharp turns while running fast Extreme difficulty or unable to perform activity s. Hopping Extreme difficulty or unable to perform activity t. Rolling over in bed Quite a bit of difficulty LEFI Score Lower Extremity Functional Index Score 23 Outpatient Therapy Assessment Impairments Problems/Impairmments Palpation Tenderness,Impaired Range of Motion,Impaired Strength,Impaired Walking, Impaired Standing,Impaired Lifting,Impaired Household Care,Impaired Stair Climbing, Impaired Incline Stepping, Impaired Stepping on Uneven Surface,Impaired Squatting, Impaired Bending,Subjective C/ O Pain,Impaired Self Care/Self Management Prognosis Rehab Potential Good Comment barriers to progress include chronic pain Clinical Impression Consistent with Diagnosis Yes Short Term Goals Number of Weeks 3 Improve LEFI Score Yes: Improve score to 33/80 to improve overall QOL Decrease Subjective C/O Pain Yes: Improve pain at worst to 8/10 to improve overall QOL Improve Self Care/Self Management Yes Patient to be Ind w/ HEP Yes Motion Picture Actor Goals Number of Weeks 6 Increase Range of Motion Yes: Improve lumbar extension and LF to at least 15 Increase Strength Yes: Improve BLE MMT to 4-4+/5 grossly to assist with function Increase Ability to Walk Yes: 10-15' with pain 6/10 or less to assist with iADLs Improve Ability to Climb Stairs Yes: 1 flight with pain 6/10 or less Improve LEFI Score Yes: Improve score to 43/80 to improve overall QOL Decrease Subjective C/O Pain Yes: Improve pain at worst to 6/10 to improve overall QOL Outpatient Therapy Plan of Care Treatment Plan May Include Therapeutic Exercise Including Home Yes Exercise Program Manual Therapy Techniques Yes Neuromuscular Re-education Yes Therapeutic Activities to Return to Yes Previous Functional/Work Level Gait Training Yes ADL/Self Care Education Yes Mechanical Traction Yes Dry Needling Yes Thermal Modalities Yes Electrical Stimulation Yes Ultrasound/Phonophoresis Yes Iontophoresis Yes Vasopneumatic Compression Pump Yes Massage Yes Group Therapy for Medicare Yes Eval/Re-Eval Yes Frequency Times per week 2 Duration Number of Weeks 4-6 Addendums This patient is a candidate for social No or vocational rehab? Patient/Guardian verbally acknowledges Yes understanding of treatment program and consents to further treatment? Patient/Guardian verbally acknowledges Yes understanding of diagnosis, prognosis and goals for treatment? Eval Complexity PT Charges 38736 - Low Complexity Shoulder/Elbow Eval Shoulder Objective Measurements Elbow Objective Measurements PHYSICIAN CERTIFICATION: I certify the specified therapy services for Ny Delgado are required, authorized, and reviewed every 30 days.
== END 2024-09-10 23:59 | disposition home or self-care (01) ==
LOC: PT 13:47
PROVIDERS: PCP Nurse Practitioner Family; Visit Provider Nurse Practitioner Family
DX: M25.552 Pain in left hip (principal); M25.551 Pain in right hip; M54.50 Low back pain, unspecified; G89.29 Other chronic pain
CPT/HCPCS: 97163

== ENCOUNTER 2024-11-27 15:40 | Outpatient (CLI) | payer OTHER, SELFPAY ==
--- NOTE | 2024-11-27 15:43 | XR_ITS ---
FINAL REPORT CLINICAL HISTORY: LBP radiating LLE COMPARISON: None FINDINGS: 3 views of the lumbar spine were obtained. There is no evidence of fracture. There is no malalignment. The vertebrae are normal in height. There is advanced facet sclerosis in the lower lumbar spine. Left iliac venous stent is present. IMPRESSION: No acute bony abnormality. Advanced facet sclerosis lower lumbar spine. Reviewed, Interpreted and Dictated by Wayne Manriquez MD Transcribed by Jossie Vizcaino Authenticated and [facility]
--- OUTSIDE RECORDS SUMMARY | 2024-11-27 15:43 | XMS_ITS | Clinical Summary ---
Author Organization Healthcare Address [address] [place] [address] Care Team Providers Care Shredder Picker Name Role Phone Unavailable Primary Care Provider Unavailabl e Allergies Active Allergy Reactions Criticality Noted Date Comments Promethazine Unknown - Patient st ates they do not know rxn details Low 02/28/2018 Medications aspirin 81 MG chewable tablet 1 (one) time each day. 07/16/2019 Active albuterol 108 (90 Base) MCG/ACT inhaler INHALE 2 PUFFS EVERY 4-6 HOURS NEEDED. 07/16/2019 Active methocarbamol (Robaxin) 500 MG tabletIndication s:Lumbar back pain,Bilateral leg and foot pain,Lumbar disc disease Take 1 tablet (500 mg total) by mouth 4 (four) times a day if needed for muscle spasms. 40 tablet 3 09/16/2021 Active Active Problems Problem Noted Date Diagnosed Date Lung nodule 03/31/2020 COPD exacerbation 02/27/2019 Urinary incontinence in female 02/27/2019 Vascular disease 08/14/2018 Bilateral leg and foot pain 06/06/2018 Lumbar disc disease 02/28/2018 Immunizations Immunization Administration Dates Next Due Influenza, injectable, quadr ivalent, preservative free 03/25/2020,02/27/2019,01/09/2018 Pneumococcal Polysaccharide PPV23 03/25/2020, Tdap 03/25/2020 Family History Medical History Relation Name Comments Conversions - Other Father Lewy bod y dementia Lung cancer Mother Relation Name Status Comments Father Mother Social History Tobacco Use Types Packs/Day Years Used Date Smoking Tobacco: Every Day Smokeless Tobacco: Never Tobacco Cessation:Ready to Q uit: No; Counseling Given: Yes Alcohol Use Standard Drinks/Week Comments Yes 0 (1 standard drink = 0.6 oz pure alcohol) Alcoholic Drinks/day: Occasional alcohol use PHQ-2 Answer Date Recorded Patient Health Questionnaire-2 Score 0 09/16/2021 Comments Unknown Sex and Gender Information Value Date Recorded Sex Assigned at Not on file Legal Sex Female 7:04 PM EDT Gender Identity Not on file Sexual Orientation Not on file Last Filed Vital Signs Vital Sign Reading Time Taken Comments Blood Pressure 110/60 09/16/2021 3:03 PM EDT Pulse 90 09/16/2021 3:03 PM EDT Temperature 37.2 C (99 F) 07/16/2019 8:10 AM EDT Respiratory Rate 16 07/16/2019 8:10 AM EDT Oxygen Saturation 98% 09/16/2021 3:03 PM EDT Inhaled Oxygen Concentration - - Weight 65.3 kg (143 lb 15.4 oz) 09/16/2021 3:03 PM EDT Height 157.5 cm (5' 2 ) 09/16/2021 3:03 PM EDT Body Mass Index 26.33 09/16/2021 3:03 PM EDT Plan of Treatment Health Maintenance Due Date Last Done Comments [facility]-Depression Screening 1960 [facility]-/Child/Adol SDOH Screenings 1960 [facility]- SDOH Screenings 1979 [facility]-Adult SDOH Screenings 1979 CT Colonography 2006 FIT-DNA 2006 FIT 2006 FOBT 2006 Sigmoidoscopy 2006 [facility]-Zoster Vaccines (1 of 2) 2011 [facility]-Pneumococcal Vaccine: 50 + Years (2 of 2 - PCV) 03/25/2021 03/25/2020, 11/21/2013 [facility]-Pap Smear 02/27/2022 02/27/2019 [id number] Vaccine ( season) 2023 12/11/2020, 11/13/2020 [facility]-Cervical Cancer Screening 02/28/2024 [facility]-HPV/Cotest 02/28/2024 02/27/2019, 02/27/2019 Colonoscopy 03/20/2024 03/20/2019, 03/20/2019 [facility]-Colorectal Cancer Screening 03/20/2024 [facility]-Influenza Vaccine (#1) 12/23/202403/25, 02/27/2019, 01/09/2018 [facility]-DTaP,Tdap,and Td Vaccine s (2 - Td or Tdap) 03/25/2030 03/25/2020 [facility]-RSV Vaccine: 60+ Years o r (1 - 1-dose 75+ series) 2036 [facility]-Breast Cancer Screening Discontinued 12/03/2013 HPV Vaccines Aged Out No longer eligi ble based on patient's age to complete this topic [facility]-HIB Vaccines Aged Out No longer e ligible based on patient's age to complete this topic [facility]-Hepatitis A Vaccines Aged Out No longer eligible based on patient's age to complete this topic UKY-IPV Vaccines Aged Out No longer e ligible based on patient's age to complete this topic [facility]-Rotavirus Vaccines Aged Out No lo nger eligible based on patient's age to complete this topic Procedures Procedure Name Priority Date/Time Associated Diagnosis Comments COLONOSCOPY EXTERNAL RESULT 03/20/2019 CYTO DATA CONVERSION Routine 02/27/2019 12:00 AM EST MAMMOGRAPHY EXTERNAL RESULTS 12/03/2013 from Last 3 Months or Most Recently Relevant to Health Maintenance Results * COLONOSCOPY EXTERNAL RESULT (03/20/2019) Anatomical Region Laterality Modality Endoscopy Narrative 03/20/2019 Ordered by an unspecified provider. us External Provider GI PROCEDURE ORDERABLES Final Result * Cytology (02/27/2019 12:00 AM EST) 02/27/2019 02/28/2019 11: 33 AM EST Narrative [facility] - 03/04/2019 2:19 PM EST [facility] MR #: [id number] [facility] [place] [address] 1960 (Age: 58) FW Collect Date: 02/27/2019 00:00 Receipt Date: 02/28/2019 11:33 Page 1 DEPARTMENT OF PATHOLOGY AND LABORATORY MEDICINE CYTOPATHOLOGY REPORT Email: [email or web address] [phone] ATTENDING MD/Practitioner: Niki Alejandre M.D. Service: [facility] Location: [facility] Reported: 03/04/2019 14:19 Collected: 02/27/2019 00:00 INTERPRETATION A. THIN PREP (CERVICAL/VAGINAL): NEGATIVE FOR INTRAEPITHELIAL LESION OR MALIGNANCY. SATISFACTORY FOR EVALUATION; ENDOCERVICAL/ TRANSFORMATION ZONE COMPONENT PRESENT. Slide scanned and imaged by [employer] ThinPrep Imaging System with manual review of all selected lucero. Electronically Signed Out By CHANDAN Lopez (ASCP) CHANDAN Lopez (ASCP) Cervical cytology is a screening test primarily for squamous cancers and precursors and has associated false negative and positive results. New technologies such as liquid based sampling may decrease but will not eliminate all false negative results. Regular screening and follow-up of unexplained clinical signs and symptoms are recommended to minimize false negative results. Please see the ASCCP website (www.asccp.org) for followup recommendations. If HPV testing was requested, correlation with the results is suggested (please call Microbiology at [phone] for results). CLINICAL INFORMATION: Menstrual History: Postmenopausal Date of Last Menstrual Period: {Not Provided} Other Clinical Conditions: Suspected or previous abnormality:: previous abnormal pap Abnormal pap results elsewhere HPV testing requested. SPECIMEN DESCRIPTION: A: THIN PREP (CERVICAL/VAGINAL) THIN PREP PROCESS CELLULAR ENHANCEMENT ICD: F: A; DX IMAGE [id number] SNOMED CODES: A; [id number] In cases where a pathologist has signed out the report, the service has been rendered in part by a resident. The signing pathologist has performed and is responsible for the reported pathologic evaluation. Alicia Davis MD LAB PATHOLOGY ORDERABLES Final Result [facility] * MAMMOGRAPHY EXTERNAL RESULTS (12/03/2013) Anatomical Region Laterality Modality Mammography Narrative 12/03/2013 Ordered by an unspecified provider. us External Provider IMG BI PROCEDURES Final Result from Last 3 Months or Most Recently Relevant to Health Maintenance
== END 2024-11-27 23:59 | disposition home or self-care (01) ==
LOC: RAD 15:41
PROVIDERS: PCP Nurse Practitioner Family; Visit Provider Nurse Practitioner Family
DX: G95.89 Other specified diseases of spinal cord (principal)
CPT/HCPCS: 72100

== ENCOUNTER 2024-12-25 14:59 | Outpatient (CLI) | payer OTHER, SELFPAY ==
--- OUTSIDE RECORDS SUMMARY | 2024-12-25 15:03 | XMS_ITS | Clinical Summary ---
Author Organization Healthcare Address [address] [place] [address] Care Team Providers Care Patient Office Rep Name Role Phone Unavailable Primary Care Provider [...] Date Last Done Comments [facility]-Depression Screening 1960 [facility]-Infant/Child/Adol SDOH Screenings 1960 [facility]- SDOH Screenings 1979 [facility]-Adult SDOH Screenings 1979 CT Colonography 2006 FIT-DNA 2006 FIT 2006 FOBT 2006 Sigmoidoscopy 2006 [facility]-Zoster Vaccines (1 of 2) 2011 [facility]-Pneumococcal Vaccine: 50 + Years (2 of 2 - PCV) 03/25/2021 03/25/2020, 11/21/2013 [facility]-Pap Smear 02/27/2022 02/27/2019 [id number] Vaccine ( season) 2023 12/11/2020, 11/13/2020 [facility]-Cervical [...] Narrative [facility] - 03/04/2019 2:19 PM EST [facility] MR #: [id number] [facility] [place] [address] 1960 (Age: 58) FW Collect Date: 02/27/2019 00:00 Receipt Date: 02/28/2019 11:33 Page 1 DEPARTMENT OF PATHOLOGY AND LABORATORY MEDICINE CYTOPATHOLOGY REPORT Email: [email or web address] [phone] ATTENDING MD/Practitioner: Niki Alejandre M.D. Service: [facility] Location: [facility] Reported: 03/04/2019 14:19 Collected: 02/27/2019 00:00 INTERPRETATION A. THIN PREP (CERVICAL/VAGINAL): NEGATIVE FOR INTRAEPITHELIAL LESION OR MALIGNANCY. SATISFACTORY FOR EVALUATION; ENDOCERVICAL/ TRANSFORMATION ZONE COMPONENT PRESENT. Slide scanned and imaged by [employer] ThinPrep Imaging System with manual review of [...] results is suggested (please call Microbiology at [phone] for results). CLINICAL INFORMATION: Menstrual History: Postmenopausal Date of Last Menstrual Period: {Not Provided} Other Clinical Conditions: Suspected or previous abnormality:: previous abnormal pap Abnormal pap results elsewhere HPV testing requested. SPECIMEN DESCRIPTION: A: THIN PREP (CERVICAL/VAGINAL) THIN PREP PROCESS CELLULAR ENHANCEMENT ICD: F: A; DX IMAGE [id number] SNOMED CODES: A; [id number] In cases where a pathologist has signed [...]
--- NOTE | 2024-12-25 15:15 | MR_ITS ---
FINAL REPORT CLINICAL HISTORY: LBP radiating to left LE COMPARISON: None FINDINGS: Multiplanar MR imaging of the lumbar spine was performed without contrast. There is artifact associated with left iliac venous stent. On the sagittal T2-weighted images, there is abnormal decreased signal throughout the lumbar discs. The vertebrae are of normal height. Minimal spondylolisthesis of L1 on L2. There is a hemangioma in the posterior aspect of the L1 vertebra. L1-2: Mild disc bulge. Mild bilateral neuroforaminal narrowing. L2-3: Mild disc bulge. Mild bilateral neuroforaminal narrowing. L3-4: There is no significant canal stenosis or neural foraminal narrowing. L4-5: Mild disc bulge. Mild bilateral neuroforaminal narrowing. L5-S1: There is no significant canal stenosis or neural foraminal narrowing. IMPRESSION: Mild disc bulges at L1-2, L2-3, and L4-5. No acute bony abnormality. Reviewed, Interpreted and Dictated by Wayne Manriquez MD Transcribed by Jossie Vizcaino Authenticated and . [facility]
== END 2024-12-25 23:59 | disposition home or self-care (01) ==
LOC: RAD 14:59
PROVIDERS: PCP Nurse Practitioner Family; Visit Provider Nurse Practitioner Family
DX: M51.369 Other intervertebral disc degeneration, lumbar region without mention of lumbar back pain or lower extremity pain (principal); M47.819 Spondylosis without myelopathy or radiculopathy, site unspecified
CPT/HCPCS: 72148

== ENCOUNTER 2025-01-20 09:43 | Outpatient (CLI) | payer OTHER, SELFPAY ==
--- OUTSIDE RECORDS SUMMARY | 2025-01-20 09:46 | XMS_ITS | Clinical Summary ---
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 Role Phone Unavailable Primary Care Provider [...] incontinence in female 02/27/2019 Vascular disease 08/14/2018 Lumbar disc disease 02/28/2018 Resolved Problems Problem Noted Date Diagnosed Date Resolved Date Bilateral leg and foot pain 06/06/2018 01/12/2025 Immunizations Immunization Administration Dates Next Due Influenza, [...] 03/25/2021 03/25/2020, 11/21/2013 [facility]-Pap Smear 02/27/2022 02/27/2019 [facility]-Cervical Cancer Screening 02/28/2024 [facility]-HPV/Cotest 02/28/2024 02/27/2019, 02/27/2019 Colonoscopy 03/20/2024 03/20/2019, 03/20/2019 [facility]-Colorectal Cancer Screening 03/20/2024 [id number] Vaccine (3 - season) 2024 12/11/2020, 11/13/2020 [facility]-Influenza Vaccine (#1) 12/23/202403/25, 02/27/2019, 01/09/2018 [facility]-DTaP,Tdap,and [...] Narrative SUNQUEST - 03/04/2019 2:19 PM EST [facility] MR #: [id number] [facility] [place], [place] [address] 1960 (Age: 58) FW Collect Date: 02/27/2019 00:00 Receipt Date: 02/28/2019 11:33 Page 1 DEPARTMENT OF PATHOLOGY AND LABORATORY MEDICINE CYTOPATHOLOGY REPORT Email: [email or web address] [phone] ATTENDING MD/Practitioner: Niki Alejandre M.D. Service: [facility] Location: [place] [place] Reported: 03/04/2019 14:19 Collected: 02/27/2019 00:00 INTERPRETATION A. THIN PREP (CERVICAL/VAGINAL): NEGATIVE FOR INTRAEPITHELIAL LESION OR MALIGNANCY. SATISFACTORY FOR EVALUATION; ENDOCERVICAL/ TRANSFORMATION ZONE COMPONENT PRESENT. Slide scanned and imaged by [employer]_ ThinPrep Imaging System with manual review of [...] results is suggested (please call Microbiology at [phone] for results). CLINICAL INFORMATION: Menstrual History: Postmenopausal Date of Last Menstrual Period: {Not Provided} Other Clinical Conditions: Suspected or previous abnormality:: previous abnormal pap Abnormal pap results elsewhere HPV testing requested. SPECIMEN DESCRIPTION: A: THIN PREP (CERVICAL/VAGINAL) THIN PREP PROCESS CELLULAR ENHANCEMENT ICD: F: A; DX IMAGE [id number] SNOMED CODES: A; [id number] In cases where a pathologist has signed [...]
--- NOTE | 2025-01-20 09:48 | XR_ITS ---
FINAL REPORT CLINICAL HISTORY: bilateral anterior rib pain, worse on Lt side FINDINGS: A PA view of the chest and oblique views of the bilateral ribs were obtained. There is no prior exam for comparison. The cardiac and mediastinal silhouettes are within normal limits. The lungs are clear. There is no pneumothorax. Oblique views of the bilateral ribs reveal no displaced rib fracture. IMPRESSION: No acute bilateral rib fracture and no pneumothorax. Reviewed, Interpreted and Dictated by Wayne Manriquez MD Transcribed by Jossie Vizcaino Authenticated and [facility]
== END 2025-01-20 23:59 | disposition home or self-care (01) ==
LOC: RAD 09:45
PROVIDERS: PCP Nurse Practitioner Family; Visit Provider Student in an Organized Health Care Education/Training Program
DX: R07.81 Pleurodynia (principal)
CPT/HCPCS: 71111

== ENCOUNTER 2025-02-04 14:47 | Outpatient (RCR) | payer OTHER, SELFPAY ==
--- NOTE | 2025-02-04 16:11 | HMH.PTOPEV ---
PT Evaluation Rehab PT Outpatient Evaluation Start: 02/04/25 14:57 Freq: Status: Active Protocol: Document 02/04/25 14:57 VICKY (Rec: 02/04/25 16:10 VICKY [email or web address]) E-signed By Sendy Badillo, PT Outpatient Therapy Subjective History Subjective History Pt is a 64 y/o female referred to PT for low back pain. Pt reports chronic low back for years. Pt had a lumbar spine MRI on 12/25/24 with impression of Mild disc bulges at L1-2, L2-3, and L4-5. No acute bony abnormality. Pt reports central low back pain that radiates to the lateral aspect of both hips. Pt also reports intermittent instances of spasms that shoot down the left leg into the middle of the foot, she states this does not happen often. Pt reports she also experiences sharp sudden pain of both hips that radiates into into her groin region with walking that comes and goes randomly, states it brings her to tears and feels that her hips are breaking. Pt states this is brief in nature with last occurrence 2 weeks ago. Pt states she has not fallen do to this, denies required use of an AD. Pt reports pain is also aggravated by prolonged standing, walking, walking on an incline, stair climbing, and laying on her back/sides. Pt reports she was referred to pain management but states she got her medical marijuana license so they won't touch her so she is going to cancel that appointment. Work: [employer] Medical History: Osteoporosis, PVD, DVT, Dry eye syndrome, Sleep apnea, Osteoarthritis, COPD (chronic obstructive pulmonary disease), DDD (degenerative disc disease) New diagnosis of No cancer in past 12 months? Chief Complaint Pain Symptom Type Ache,Sharp,Dull,Numbness,Tingling,Shooting Symptoms Relieved By Rest/Positioning,Ice Symptoms Aggravated Standing,Physical Activity,Walking,Lifting By Current Functional Standing,Walking,Stairs Limitations Symptom Description Constant but Variable Level of pain today 4 (0-10) Pain scale - at its 4 best (0-10) Pain scale - at its 7 worst (0-10) Lumbopelvic Eval Palapation tenderness bilateral buttock tenderness Yes: glute med, piriformis, greater trochanter Lumbar/Sacral Tenderness Palpation Findings Lumbar/Sacral 2/4 TTP Palpation Overall Comment Accessory Movement L-spine Vertebrae Central P/A [place] Accessory Movements that Elicit Symptoms L2 bilateral L3 bilateral L4 bilateral L5 bilateral Range of Motion Lumbar Spine Active 60 Flexion Range of Motion (degrees) Lumbar Spine Active 10 Extension Range of Motion (degrees) Left Lumbar Spine 10 Lateral Flexion Active Range of Motion (degrees) Right Lumbar Spine 10 Lateral Flexion Active Range of Motion (degrees) Manual Muscle Test Bilateral Knee Extension 5 Normal Strength Grade Knee Flexion 5 Normal Strength Grade Hip Flexion Strength 4 Good Grade Hip Abduction 4 Good Strength Grade Hip Adduction 4 Good Strength Grade Hip External 4 Good Rotation Strength Grade Hip Internal 4 Good Rotation Strength Grade Hip Extension 3+ Fair+ Strength Grade DTR Rt Patellar 2+ Lt Patellar 2+ Altered Sensation Bilateral Comment equal and intact to light touch sensation bilaterally Special Tests Hip Scouring ( Negative Left,Negative Right Quadrant) Test Hip Tomi (KIM) Negative Left,Negative Right Test Hip Piriformis Test Negative Left,Negative Right Sciatic Nerve Negative Left,Negative Right Tension Test Unilateral Straight Negative Left,Positive Right Leg Raise (Lasegue) Test Oswestry Index Section 1 Pain Intensity The pain is moderate and does not vary much Section 2 Personal Care ( my way of washing or dressing even though it causes Washing,Dresing) some pain Section 3 Lifting Pain prevents me from lifting weights off the floor Section 4 Walking I cannot walk more than 1/4 mile without increasing pain Section 5 Sitting Pain prevents me from sitting for more than one hour Section 6 Standing I cannot stand more than 1 hour without increasing pain Section 7 Sleeping I get pain in bed, but it does not prevent me from sleeping well Section 8 Social Life My social life is normal but increases the degree of pain Section 9 Traveling I get extra pain while traveling, but it does not compel me to seek al Section 10 Changing Degreee of My pain seems to be getting better, but improvement is Pain slow Score and Risk Level Oswestry Score 20 Oswestry Risk Level Moderate Disability Outpatient Therapy Assessment Impairments Problems/ Palpation Tenderness,Impaired Range of Motion,Impaired Impairmments Strength,Impaired Walking,Impaired Standing,Impaired Lifting,Impaired Household Care,Impaired Stair Climbing ,Impaired Incline Stepping,Impaired Stepping on Uneven Surface,Impaired Work Activities,Subjective C/O Pain, Impaired Self Care/Self Management Prognosis Rehab Potential Good Clinical Impression Consistent with Yes Diagnosis PT Patient Goals PT Patient Goals PT Short Term 3 weeks: Patient Goals 1. Verbalize compliance with HEP to assist with progress. 2. Improve pain at worst to 5/10 on VAS to improve overall QOL/function. 3. Improve lumbar AROM flex to at least 65-70 to assist with mobility and function. 4. Improve B hip extension MMT to 4-/5 grossly to assist with function. PT Nursing Home Patient 6 weeks: Goals 1. Improve lumbar AROM flex to 70-80, ext & LF to 15 to assist with mobility and function. 2. Improve BLE hip MMT to 4-4+/5 grossly to assist with function. 3. Improve pain at worst to 3/10 on VAS to improve overall QOL/function. 4. Improve KIRSTIN score to 15 or less to improve overall QOL/function. Outpatient Therapy Plan of Care Treatment Plan May Include Therapeutic Exercise Yes Including Home Exercise Program Manual Therapy Yes Techniques Neuromuscular Re- Yes education Therapeutic Yes Activities to Return to Previous Functional/Work Level ADL/Self Care Yes Education Mechanical Traction Yes Dry Needling Yes Thermal Modalities Yes Electrical Yes Stimulation Ultrasound/ Yes Phonophoresis Iontophoresis Yes Massage Yes Eval/Re-Eval Yes Frequency Times per week 2 Duration Number of Weeks 4-6 Addendums This patient is a No candidate for social or vocational rehab ? Patient/Guardian Yes verbally acknowledges understanding of treatment program and consents to further treatment? Patient/Guardian Yes verbally acknowledges understanding of diagnosis, prognosis and goals for treatment? Eval Complexity PT Charges [id number] - Moderate Complexity Shoulder/Elbow Eval Shoulder Objective Measurements Elbow Objective Measurements PHYSICIAN CERTIFICATION: I certify the specified therapy services for Ny Delgado are required, authorized, and reviewed every 30 days.
== END 2025-02-04 23:59 | disposition home or self-care (01) ==
LOC: PT 14:47
PROVIDERS: Visit Provider Nurse Practitioner Family
DX: M51.360 Other intervertebral disc degeneration, lumbar region with discogenic back pain only (principal)
CPT/HCPCS: 97162